=== PATIENT | female | born 1990 | race African-American/Black ===

== ENCOUNTER 2019-06-21 14:58 | Emergency (ER) | payer MEDICARE ==
[~2019-06-21] VITALS: Ht 162.6 cm; Wt 70.9 kg
[2019-06-21 15:06] VITALS: Ht 162.6 cm; Wt 70.9 kg
[2019-06-21] MEDS ORDERED: BENZTROPINE ME0.5 MG PO ×2 (15:17→15:43)
[2019-06-21] MEDS ORDERED: HALDOL5 MG PO ×2 (15:17→15:43)
[2019-06-21 15:57] VITALS: BP 122/66
== END 2019-06-21 15:57 | disposition home or self-care (01) ==
LOC: D.ER 14:58
DX: F20.9 Schizophrenia, unspecified (principal)

== ENCOUNTER 2019-09-02 17:01 | Emergency (ER) | payer MEDICARE ==
[~2019-09-02] VITALS: Ht 162.6 cm; Wt 64.1 kg
[~2019-09-02 17:01] MED LIST: BENZTROPINE ME0.5 MG PO; HALDOL5 MG PO
[2019-09-02 17:03] VITALS: Ht 162.6 cm; Wt 64.1 kg
[2019-09-02] MEDS ORDERED: HALDOL5 MG PO (17:36)
[2019-09-02] MEDS ORDERED: BENZTROPINE ME0.5 MG PO (17:36)
[2019-09-02 17:51] VITALS: BP 122/72
== END 2019-09-02 17:52 | disposition home or self-care (01) ==
LOC: D.ER 17:01
DX: F20.9 Schizophrenia, unspecified (principal)